=== PATIENT | female | born 1950 | race Caucasian/White ===

== ENCOUNTER → 2018-04-02 08:10 | Outpatient (CLI) | payer MEDICARE, OTHER, SELFPAY ==
--- NOTE | 2018-04-02 08:12 | DI.MRI.S_ITS ---
PROCEDURE: MR HEAD/BRAIN WO CON INDICATIONS: dec memory TECHNIQUE: Non-contrast axial T1 spin echo, axial T2 fast spin echo, sagittal and axial FLAIR, coronal T2 fast spin echo, axial gradient echo, axial diffusion and ADC through the brain. COMPARISON: [facility], CT, HEAD WITHOUT CONTRAST, 02/12/2017, 11:51. FINDINGS: Image quality: Excellent. CSF spaces: Ventricles appear symmetric in size and shape. Basal cisterns are patent. No extra-axial fluid collections. Brain: No intracranial bleeds or mass effects. There is mild cerebral volume loss for age. There are mild periventricular and deep white matter chronic small vessel ischemic changes. Brainstem appears normal. Diffusion-weighted images show no acute ischemic insults. No chronic ischemic insults. Normal intravascular flow voids are present. Skull and face: Calvarial bone marrow is normal in signal. Orbits are normal. Sinuses: There is mucosal thickening in frontal, ethmoid, sphenoid and maxillary sinuses bilaterally. Mastoids are clear. IMPRESSION: 1. No acute intracranial abnormalities. 2. Mild cerebral volume loss and chronic microvascular ischemic changes. 3. Bilateral sinusitis. Dictated by: Ana Laura Andino M.D. on 04/02/2018 at 9:10 Approved by: Ana Laura Andino M.D. on 04/02/2018 at 9:12
[2018-04-02 10:17] LABS: Add Manual Diff / Slide Review NO; Basophils Percent Auto 0.7 % (0-2); Eosinophils Percent Auto 3.3 % (2-4); Hematocrit 34.2 % (36-46); Hemoglobin 11.5 g/dL (12.0-16.0); Lymphocytes Percent Auto 29.4 % (25-40); Mean Corpuscular HGB Conc 33.5 % (30-36); Mean Corpuscular Hemoglobin 33.1 PG (26-34); Mean Corpuscular Volume 98.8 fL (80-100); Monocytes Percent Auto 6.7 % (3-14); Neutrophils Absolute Auto 5200 /uL (3000-5900); Neutrophils Percent Auto 59.9 % (50-75); Platelet Count 299 X10^3/uL (150-400); Red Blood Cell Count 3.46 X10^6/uL (4.0-5.2); Red Cell Distribution Width 13.3 % (11.6-14.8); White Blood Cell Count 8.7 X10^3/uL (4.5-11.0)
[2018-04-02 10:39] LABS: Erythrocyte Sedimentation Rate 67 MM/HR (0-20)
[2018-04-02 10:52] LABS: Alanine Aminotransferase 15 IU/L (9-52); Albumin 3.9 g/dL (3.5-5.0); Albumin Globulin Ratio 1.1 (1.0-2.8); Alkaline Phosphatase 63 U/L (38-126); Aspartate Aminotransferase 17 IU/L (14-36); BUN Creatinine Ratio 27.1 (6-22); Bilirubin Total 0.3 mg/dL (0.2-1.3); Blood Urea Nitrogen 19 mg/dL (7-17); C-Reactive Protein Quant 0.6 mg/dL (<1.0); Calcium 9.3 mg/dL (8.4-10.2); Carbon Dioxide 28 mmol/L (22-32); Chloride 103 mmol/L (98-107); Cholesterol 187 mg/dL (140-199); Estimated Glomerular Filt Rate > 60.0 mL/min (>60); Globulin 3.4 g/dL (1.7-4.1); Glucose 101 mg/dL (80-110); HDL Cholesterol 86 mg/dL (40-60); HEMOLYSIS < 15 (0-50); LDL Cholesterol Calculated 51 mg/dL (<100); Potassium 3.8 mmol/L (3.4-5.1); Sodium 140 mmol/L (137-145); Total Protein 7.3 g/dL (6.3-8.2); Triglycerides 249 mg/dL (35-150)
[2018-04-02 11:14] LABS: Thyroid Stimulating Hormone 1.04 uIU/mL (0.47-4.68)
== END ==
PROVIDERS: Family Provider Family Medicine; PCP Family Medicine; Visit Provider Family Medicine
DX: J32.4 Chronic pansinusitis (principal)
CPT/HCPCS: 36415; 70551; 80053; 80061; 84443; 85025; 85651; 86140

== ENCOUNTER → 2019-04-02 15:09 | Outpatient (CLI) | payer MEDICARE, OTHER, SELFPAY ==
--- NOTE | 2019-04-02 15:12 | DI.RAD.S_ITS ---
PROCEDURE: XR CHEST 2V INDICATIONS: Cough TECHNIQUE: 2 views of the chest were acquired. COMPARISON: [facility], , CHEST 2 VIEW, 02/14/2017, 13:21. FINDINGS: Surgical changes and devices: None. Lungs and pleura: Lungs are clear. No pleural effusions or pneumothorax. Mediastinum: Mediastinal contours are normal. Heart size is normal. Bones and chest wall: No suspicious bony abnormalities. Soft tissues appear unremarkable. IMPRESSION: No acute disease Dictated by: Justyn Salguero M.D. on 04/02/2019 at 16:10 Approved by: Justyn Salguero M.D. on 04/02/2019 at 16:11
--- NOTE | 2019-04-02 15:12 | DI.RAD.S_ITS ---
PROCEDURE: XR LUMBAR SPINE 2-3V INDICATIONS: Hip pain TECHNIQUE: 3 views of the lumbar spine were acquired. COMPARISON: [facility], , L-SPINE 2-3 VIEWS, 06/03/2015, 15:17. FINDINGS: Bones: No fracture or focal osseous destruction. Mild levocurvature. Multilevel degenerative endplate sclerosis and spurring. Diffuse facet arthropathy. The disc spaces appear grossly preserved. Soft tissues: Overlying bowel gas pattern is normal. No suspicious soft tissue calcifications. IMPRESSION: Mild levocurvature and diffuse lumbar spondylosis however no interval progression since 06/03/15 Dictated by: Justyn Salguero M.D. on 04/02/2019 at 16:11 Approved by: Justyn Salguero M.D. on 04/02/2019 at 16:13
--- NOTE | 2019-04-02 15:12 | DI.RAD.S_ITS ---
PROCEDURE: XR HIP W PEL IF DONE LT 2V INDICATIONS: left hip pain TECHNIQUE: AP pelvis with lateral view(s) of the left hip(s). COMPARISON: [facility], , HIP 2V LEFT, 04/12/2012, 15:43. FINDINGS: Bones: No fractures or dislocations. Pelvic ring appears intact. No suspicious bony lesions. The joint spaces appear grossly preserved. Bilateral hip subchondral sclerosis and mild spurring. Soft tissues: The visualized bowel gas pattern is normal. No suspicious soft tissue calcifications. IMPRESSION: Minimal bilateral hip degeneration. Dictated by: Justyn Salguero M.D. on 04/02/2019 at 17:25 Approved by: Justyn Salguero M.D. on 04/02/2019 at 17:26
== END ==
PROVIDERS: Family Provider Family Medicine; PCP Family Medicine; Visit Provider Family Medicine
DX: R05 Cough (principal); M47.816 Spondylosis without myelopathy or radiculopathy, lumbar region; M25.552 Pain in left hip
CPT/HCPCS: 71046; 72100; 73502

== ENCOUNTER → 2019-04-14 10:46 | Outpatient (CLI) | payer MEDICARE, OTHER, SELFPAY ==
[2019-04-14 11:36] LABS: Add Manual Diff / Slide Review NO; Basophils Absolute Auto 0 /uL (0-100); Basophils Percent Auto 0.8 % (0-2); Eosinophils Absolute Auto 300 /uL (0-450); Eosinophils Percent Auto 4.8 % (2-4); Hematocrit 35.3 % (36-46); Hemoglobin 12.1 g/dL (12.0-16.0); Lymphocytes Absolute Auto 2100 /uL (1100-4500); Lymphocytes Percent Auto 36.7 % (25-40); Mean Corpuscular HGB Conc 34.2 % (30-36); Mean Corpuscular Volume 99.6 fL (80-100); Monocytes Absolute Auto 400 /uL (0-900); Monocytes Percent Auto 6.7 % (3-14); Neutrophils Absolute Auto 3000 /uL (1500-7000); Platelet Count 345 X10^3/uL (150-400); Red Blood Cell Count 3.55 X10^6/uL (4.0-5.2); White Blood Cell Count 5.8 X10^3/uL (4.5-11.0)
[2019-04-14 11:53] LABS: Alanine Aminotransferase 11 IU/L (9-52); Albumin 4.1 g/dL (3.5-5.0); Albumin Globulin Ratio 1.1 (1.0-2.8); Alkaline Phosphatase 67 U/L (38-126); Aspartate Aminotransferase 20 IU/L (14-36); BUN Creatinine Ratio 28.6 (6-22); Bilirubin Total 0.2 mg/dL (0.2-1.3); Blood Urea Nitrogen 20 mg/dL (7-17); Calcium 9.3 mg/dL (8.4-10.2); Carbon Dioxide 29 mmol/L (22-32); Chloride 103 mmol/L (98-107); Cholesterol 214 mg/dL (140-199); Estimated Glomerular Filt Rate > 60.0 mL/min (>60); Globulin 3.6 g/dL (1.7-4.1); Glucose 110 mg/dL (80-110); HDL Cholesterol 76 mg/dL (40-60); LDL Cholesterol Calculated 82 mg/dL (<100); Potassium 4.7 mmol/L (3.4-5.1); Sodium 139 mmol/L (137-145); Total Protein 7.7 g/dL (6.3-8.2); Triglycerides 281 mg/dL (35-150)
[2019-04-14 12:09] LABS: Vitamin D 25 Hydroxy (D3) 23.6 ng/mL (30.0-100.0)
[2019-04-14 12:12] LABS: Erythrocyte Sedimentation Rate 68 MM/HR (0-20)
[2019-04-14 12:22] LABS: Thyroid Stimulating Hormone 1.37 uIU/mL (0.47-4.68)
[2019-04-14 12:41] LABS: Vitamin B12 Reflex MMA if <400 234 pg/mL (239-931)
[2019-04-14 12:55] LABS: HEMOLYSIS < 15 (0-50)
[2019-04-14 15:13] LABS: Vitamin B12 224 pg/mL (239-931)
[2019-04-17 13:50] LABS: Homocysteine 6.5 umol/L (< 10.4)
[2019-04-17 17:01] LABS: Methylmalonic Acid 184 nmol/L (87-318)
== END ==
PROVIDERS: PCP Family Medicine; Visit Provider Family Medicine
DX: R41.3 Other amnesia (principal)
CPT/HCPCS: 36415; 80053; 80061; 82306; 82607; 83090; 83921; 84443; 85025; 85651; 86140

== ENCOUNTER → 2019-08-08 13:46 | Outpatient (CLI) | payer MEDICARE, OTHER, SELFPAY ==
[2019-08-08 15:23] LABS: Vitamin D 25 Hydroxy (D3) 33.6 ng/mL (30.0-100.0)
[2019-08-08 15:54] LABS: Vitamin B12 259 pg/mL (239-931)
== END ==
PROVIDERS: PCP Family Medicine; Visit Provider Family Medicine
DX: F32.9 Major depressive disorder, single episode, unspecified (principal)
CPT/HCPCS: 36415; 82306; 82607

== ENCOUNTER 2020-08-13 12:45 | Emergency (ER) | payer MEDICARE, OTHER, SELFPAY ==
[2020-08-13 12:49] VITALS: BP 179/79; PULSE 80; RESP 15; TEMP 35.9; O2SAT 99
--- NOTE | 2020-08-13 12:57 | DI.CT.S_ITS ---
PROCEDURE: CT HEAD/BRAIN WO CON INDICATIONS: dizziness TECHNIQUE: Noncontrast 4.5 mm thick angled axial sections acquired from the foramen magnum to the vertex, with coronal and sagittal reformats. For radiation dose reduction, the following was used: automated exposure control, adjustment of mA and/or kV according to patient size. COMPARISON: [facility], MR, MR HEAD/BRAIN WO CON, 04/02/2018, 8:27. [facility], CT, HEAD WITHOUT CONTRAST, 02/12/2017, 11:51. FINDINGS: Image quality: Excellent. CSF spaces: Basal cisterns are patent. No extra-axial fluid collections. The ventricles are symmetric in size and shape. Brain: No intracranial bleeds or masses. There is cerebral volume loss for age, with resultant ventricular and sulcal prominence. There are periventricular and deep white matter chronic small vessel ischemic changes. There is intracranial internal carotid artery atherosclerosis. Skull and face: Calvarium and visualized facial bones appear intact, without suspicious lesions. Sinuses: Bilateral maxillary sinus mucosal thickening. The mastoids are clear. IMPRESSION: 1. No acute intracranial abnormalities. 2. Bilateral chronic maxillary sinusitis. Dictated by: Ana Laura Andino M.D. on 08/13/2020 at 13:23 Approved by: Ana Laura Andino M.D. on 08/13/2020 at 13:25
[2020-08-13 13:23] LABS: INR 0.8 (0.9-1.3); Prothrombin Time 9.8 SECONDS (10.1-12.7)
[2020-08-13 13:26] LABS: PTT Partial Thromboplastin Tim 31 SECONDS (26.4-36.2)
[2020-08-13 13:27] LABS: Add Manual Diff / Slide Review NO; Basophils Absolute Auto 100 /uL (0-100); Basophils Percent Auto 1.3 % (0-2); Eosinophils Absolute Auto 500 /uL (0-450); Eosinophils Percent Auto 6.5 % (2-4); Hemoglobin 11.7 g/dL (12.0-16.0); Lymphocytes Absolute Auto 2800 /uL (1100-4500); Lymphocytes Percent Auto 32.9 % (25-40); Mean Corpuscular HGB Conc 33.6 % (30-36); Mean Corpuscular Hemoglobin 32.9 PG (26-34); Mean Corpuscular Volume 98.1 fL (80-100); Monocytes Absolute Auto 600 /uL (0-900); Monocytes Percent Auto 7.7 % (3-14); Neutrophils Absolute Auto 4400 /uL (1500-7000); Neutrophils Percent Auto 51.6 % (50-75); Platelet Count 323 X10^3/uL (150-400); Red Blood Cell Count 3.56 X10^6/uL (4.0-5.2); Red Cell Distribution Width 13.3 % (11.6-14.8); White Blood Cell Count 8.5 X10^3/uL (4.5-11.0)
[2020-08-13 13:30] LABS: Alanine Aminotransferase 14 IU/L (<35); Albumin 3.9 g/dL (3.5-5.0); Albumin Globulin Ratio 1.1 (1.0-2.8); Alkaline Phosphatase 92 U/L (38-126); Aspartate Aminotransferase 21 IU/L (14-36); BUN Creatinine Ratio 28.7 (6-22); Bilirubin Total 0.4 mg/dL (0.2-1.3); Blood Urea Nitrogen 25 mg/dL (7-17); Calcium 8.9 mg/dL (8.4-10.2); Carbon Dioxide 30 mmol/L (22-32); Chloride 105 mmol/L (98-107); Estimated Glomerular Filt Rate > 60.0 mL/min (>60); Globulin 3.5 g/dL (1.7-4.1); Glucose 125 mg/dL (80-110); HEMOLYSIS < 15 (0-50); Potassium 4.7 mmol/L (3.4-5.1); Sodium 138 mmol/L (137-145); Total Protein 7.4 g/dL (6.3-8.2)
[2020-08-13 13:36] LABS: RBC Urine None Seen (0-5/HPF)
[2020-08-13 13:48] LABS: Bacteria Urine Moderate (10-30); Squamous Epithelial Cell Urine 10-30 /HPF (0-5/HPF); WBC Urine 1-5/HPF (0-5/HPF)
[2020-08-13 15:53] VITALS: BP 146/65; PULSE 64; RESP 18; O2SAT 95
--- NOTE | 2020-08-13 16:14 | ED_ITS ---
HPI - Neuro Symptoms/Deficit General Chief Complaint: Neuro Symptoms/Deficit Stated Complaint: tingling in legs and arms Time Seen by Provider: 08/13/20 16:05 Source: patient and family Mode of arrival: Ambulatory Limitations: no limitations History of Present Illness HPI Narrative: This is a 70-year-old female who comes to emergency department with complaint of feeling tingling in her arms and legs while she was lying in bed. Patient states that she did feel like she could move her arms or legs. She then got up and went to the bathroom and when she returned felt like her legs sort of know she states it felt like they gave out and she fell onto the bed. She states this was short event and then resolved. She did have a little bit of a headache this morning but it has resolved. She took ibuprofen for the headache. She denies any pain, no neck or back pain no difficulty with speech, no vision changes. She states she did hit her head the other day an open covered when she was standing up and had a large lump which has resolved. She denies any syncope or loss of consciousness. No chest pain, no shortness of breath, no nausea, no vomiting no GI or urinary symptoms including diarrhea constipation. No loss of bowel or bladder control. No changes in gait or movement. Patient had a similar episode about a month ago. 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 Her states she has memory issues which seem to be more short term and t radhay do not describe them as long-term memory issues. He states they seem like they have been more progressively but have not been extending into the long-term type memory loss. They have seen Dr. Heath on the , he has ordered an MRI and feels patient would benefit from follow-up with Neurology. Patient has had tonsillectomy but no other prior surgeries. No recent changes in medication dosages or medications added, patient did stop her oral estrogen several weeks ago. No tobacco, alcohol or illicit. No family history of neurologic issues or similar symptoms. Patient states she did have somewhat similar symptoms when she was younger and would pass out frequently. On Anticoagulants: No Related Data Previous Rx's Medication Instructions Recorded cholecalciferol (vitamin D3) 1,250 50,000 unit PO QWEEK #7 cap 04/16/19 mcg (50,000 unit) capsule atorvastatin 10 mg tablet 10 mg PO HS #90 tab 08/11/20 citalopram 40 mg tablet 60 mg PO QDAY #135 tab 08/11/20 cyclobenzaprine 10 mg tablet 5 mg PO HS #20 tab 08/11/20 omeprazole 20 mg capsule,delayed 20 mg PO QDAY #90 cap 08/11/20 release zolpidem 10 mg tablet 10 mg PO BEDTIME #30 tab 08/11/20 dextroamphetamine-amphetamine 20 See Rx Instructions PO BID #75 tab 08/12/20 mg tablet hydrocodone 5 mg-acetaminophen 325 1 tab PO BID PRN #60 tab 08/12/20 mg tablet Allergies Allergy/AdvReac Type Severity Reaction Status Date / Time amoxicillin [AMOXICILLIN] Allergy Severe RASH/HIVES Verified 08/11/20 14:05 codeine [CODEINE] Allergy Mild GASTROINTESTINAL Verified 08/11/20 14:05 ISSUES Review of Systems Review of Systems ROS Unobtainable: All systems reviewed & are unremarkable except as noted in HPI and below Patient History Medical History BPPV (benign paroxysmal positional vertigo) (Acute) Dehydration (Acute) Social History Smoking Status: Former smoker Smoking Status: Former smoker alcohol intake frequency: 0-2 drinks per day Substance Use Type: does not use Exam Narrative Exam Narrative: GEN: well nourished, well appearing female, alert and oriented x 3, patient appears to be in mild distress. HEENT: Atraumatic, pupils are equal round reactive to light, extraocular movements are intact, nares are clear, TMs are clear with no fluid, there is no conjunctival pallor. Throat is clear without any exudates, erythema, tonsillar enlargement or uvular deviation, no facial droop, no dysarthria. HEART: Regular rate and rhythm without murmur, clicks, rubs. No carotid bruits, pulses are equal in upper and lower extremities LUNGS:Lungs clear to auscultation, no wheezes, rales, crackles, chest moves symmetrically ABD:bowel sounds normal, soft, non-tender, no guarding, rebound, rigidity, no masses noted, no hepatosplenomegaly :No CVA tenderness. MSCL: Non-tender, no muscle atrophy, muscles strength 5/5 upper and lower extremities, full range of motion, normal gait NEURO:CN 2-12 intact, sensation normal, reflexes 2/4 upper and lower extremities. finger nose finger test normal, heel leonard test normal. Initial Vital Signs Initial Vital Signs: Vital Signs Temperature 96.6 F L 08/13/20 12:49 Pulse Rate 80 08/13/20 12:49 Respiratory Rate 15 08/13/20 12:49 Blood Pressure 179/79 H 08/13/20 12:49 Pulse Oximetry 99 08/13/20 12:49 Scores GCS Emily coma scale eye opening: Spontaneous [place] coma scale verbal response: Orientated [place] coma scale motor response: Obey commands [place] coma scale total score: 15 NIH Stroke Scale Level of Conciousness: Alert, keenly responsive Ask month/age: Answers both questions correctly. Open/close eyes, close hand: Performs both tasks correctly Best gaze horizontal: Normal Visual epps: No visual loss Facial palsy: Normal symetrical movement Left arm drift: No drift for full 10 sec Right arm drift: No drift for full 10 sec Left leg drift: No drift for full 5 sec Right leg drift: No drift for full 5 sec Limb ataxia: Absent Sensory on face/arms/legs: Normal, no sensory loss Best language: No aphasia, normal Dysarthria: Normal Extinction or inattention: No abnormality Total NIH Stroke scale score: 0 Course Orders Ordered: ED Orders 08/13/20 12:57 CT head/brain wo con Stat 08/13/20 13:07 Complete Blood Count AUTO DIFF Stat Comprehensive Metabolic Panel Stat Ethanol (ETOH) Stat Partial Thromboplastin Time Stat Prothrombin Time INR Stat 08/13/20 13:29 Urine Microscopic Stat 08/13/20 15:07 EKG-12 Lead Stat 08/13/20 16:51 Urine Drug Screen, Rapid Stat Vital Signs Vital signs: Vital Signs - 8 hr 08/13/20 12:49 08/13/20 15:53 08/13/20 17:27 Temperature 96.6 F L Pulse Rate 80 64 72 Respiratory Rate 15 18 18 Blood Pressure 179/79 H 146/65 H 169/74 H Pulse Oximetry 99 95 98 MDM - Neuro Symptoms/Deficit Lab Data Attestation: I reviewed the patient's lab results. Lab results narrative: Patient's labs patient has anemia although appears to be baseline. Eosinophils are elevated. INR is low, PTT is normal. No electrolyte abnormalities noted, BUN is 25 with a glucose of 125 and normal renal function. LFTs are normal range. etoh is negative. Urine shows white blood cells and bacteria but also epithelial cells and is likely ?dirty urine?. Result diagrams: 08/13/20 13:07 08/13/20 13:07 Labs: Lab Results 08/13/20 08/13/20 08/13/20 Range/Units 13:07 13:07 13:07 WBC 8.5 (4.5-11.0) X10^3/uL RBC 3.56 L (4.0-5.2) X10^6/uL Hgb 11.7 L (12.0-16.0) g/dL Hct 35.0 L (36-46) % MCV 98.1 (80-100) fL MCH 32.9 (26-34) PG MCHC 33.6 (30-36) % RDW 13.3 (11.6-14.8) % Plt Count 323 (150-400) X10^3/uL Neut % (Auto) 51.6 (50-75) % Lymph % (Auto) 32.9 (25-40) % Finney % (Auto) 7.7 (3-14) % Eos % (Auto) 6.5 H (2-4) % Baso % (Auto) 1.3 (0-2) % Neut # (Auto) 4400 (6759-3483) /uL Lymph # (Auto) 2800 (0452-5522) /uL Finney # (Auto) 600 (0-900) /uL Eos # (Auto) 500 H (0-450) /uL Baso # (Auto) 100 (0-100) /uL PT 9.8 L (10.1-12.7) SECONDS INR 0.8 L (0.9-1.3) APTT 31 (26.4-36.2) SECONDS Sodium 138 (137-145) mmol/L Potassium 4.7 (3.4-5.1) mmol/L Chloride 105 (98-107) mmol/L Carbon Dioxide 30 (22-32) mmol/L BUN 25 H (7-17) mg/dL Creatinine 0.87 (0.52-1.04) mg/dL Estimated GFR > 60.0 (>60) mL/min BUN/Creatinine Ratio 28.7 H (6-22) Glucose 125 H (80-110) mg/dL Calcium 8.9 (8.4-10.2) mg/dL Total Bilirubin 0.4 (0.2-1.3) mg/dL AST 21 (14-36) IU/L ALT 14 (<35) IU/L Alkaline Phosphatase 92 (38-126) U/L Total Protein 7.4 (6.3-8.2) g/dL Albumin 3.9 (3.5-5.0) g/dL Globulin 3.5 (1.7-4.1) g/dL Albumin/Globulin Ratio 1.1 (1.0-2.8) Urine RBC (0-5/HPF) Urine WBC (0-5/HPF) Ur Squamous Epith Cells (0-5/HPF) Urine Bacteria (None) Ur Culture Indicated? Micro UA Comment Ethyl Alcohol ( - 10) mg/dL 08/13/20 08/13/20 Range/Units 13:07 13:29 WBC (4.5-11.0) X10^3/uL RBC (4.0-5.2) X10^6/uL Hgb (12.0-16.0) g/dL Hct (36-46) % MCV (80-100) fL MCH (26-34) PG MCHC (30-36) % RDW (11.6-14.8) % Plt Count (150-400) X10^3/uL Neut % (Auto) (50-75) % Lymph % (Auto) (25-40) % Finney % (Auto) (3-14) % Eos % (Auto) (2-4) % Baso % (Auto) (0-2) % Neut # (Auto) (2065-2720) /uL Lymph # (Auto) (2190-2537) /uL Finney # (Auto) (0-900) /uL Eos # (Auto) (0-450) /uL Baso # (Auto) (0-100) /uL PT (10.1-12.7) SECONDS INR (0.9-1.3) APTT (26.4-36.2) SECONDS Sodium (137-145) mmol/L Potassium (3.4-5.1) mmol/L Chloride (98-107) mmol/L Carbon Dioxide (22-32) mmol/L BUN (7-17) mg/dL Creatinine (0.52-1.04) mg/dL Estimated GFR (>60) mL/min BUN/Creatinine Ratio (6-22) Glucose (80-110) mg/dL Calcium (8.4-10.2) mg/dL Total Bilirubin (0.2-1.3) mg/dL AST (14-36) IU/L ALT (<35) IU/L Alkaline Phosphatase (38-126) U/L Total Protein (6.3-8.2) g/dL Albumin (3.5-5.0) g/dL Globulin (1.7-4.1) g/dL Albumin/Globulin Ratio (1.0-2.8) Urine RBC None seen (0-5/HPF) Urine WBC 1-5/hpf (0-5/HPF) Ur Squamous Epith Cells 10-30 /hpf H (0-5/HPF) Urine Bacteria Moderate (10-30) H (None) Ur Culture Indicated? Culture not indicate Micro UA Comment Ethyl Alcohol < 10 ( - 10) mg/dL Urine Dip Bedside Urine Glucose Negative Bedside Urine Bilirubin - Negative Bedside Urine Ketone - Negative Urine Specific Dolliver 1.025 Bedside Urine Occult Blood - Negative Bedside Urine pH 6.0 Bedside Urine Protein + 30 Bedside Urine Urobilinogen - Negative Bedside Urine Nitrite - Negative Bedside Urine Leukocytes - Negative Esterase Imaging Data CT scan - head: Radiologist's Impression: [address] [address] [address] Scan Report Signed Patient: Yasmine Goncalves R#: [id number] : 1950Acct:[id number] Age/Sex: 70 / FDate of Service: 08/13/20 Loc: ED Accession Number: [id number] Procedure: CT head/brain wo con Ordering Provider: Caridad Gomez D.O. PROCEDURE: CT HEAD/BRAIN WO CON INDICATIONS: dizziness TECHNIQUE: Noncontrast 4.5 mm thick angled axial sections acquired from the foramen magnum to the vertex, with coronal and sagittal reformats. For radiation dose reduction, the following was used: automated exposure control, adjustment of mA and/or kV according to patient size. COMPARISON: [facility], MR, MR HEAD/BRAIN WO CON, 04/02/2018, 8:27. [facility], CT, HEAD WITHOUT CONTRAST, 02/12/2017, 11:51. FINDINGS: Image quality: Excellent. CSF spaces: Basal cisterns are patent. No extra-axial fluid collections. The ventricles are symmetric in size and shape. Brain: No intracranial bleeds or masses. There is cerebral volume loss for age, with resultant ventricular and sulcal prominence. There are periventricular and deep white matter chronic small vessel ischemic changes. There is intracranial internal carotid artery atherosclerosis. Skull and face: Calvarium and visualized facial bones appear intact, without suspicious lesions. Sinuses: Bilateral maxillary sinus mucosal thickening. The mastoids are clear. IMPRESSION: 1. No acute intracranial abnormalities. 2. Bilateral chronic maxillary sinusitis. Dictated by: Ana Laura Andino M.D. on 08/13/2020 at 13:23 Approved by: Ana Laura Andino M.D. on 08/13/2020 at 13:25 ECG Data Attestation: I personally reviewed and interpreted this ECG as follows: Prior ECG tracings: available for review Interpretation: Sinus rhythm rate of 60, HI 168 QRS 86 and QTC of 462. Q-wave in lead 3. No elevation appreciated. Patient has prior EKG from 02/12/2017 which appears similar MDM Narrative Medical decision making narrative: Patient describes paresthesias and difficulty with moving her extremities but both upper and lower initially and then later both lower extremities. Patient did not have loss of consciousness did feel like she had any alteration in mental status. She does not have any clear pattern that fits a typical neurologic insult such as seizure, ischemic or hemorrhagic cause, patient does have a remote TBI. Does not appear to have a cardiac origin or pulmonary. She does take several medications that could affect her memory she takes Adderall, [place] as well as an antidepressant in combination. Labs and imaging do not show current cause, urine appears dirty and patient prefers to follow with pcp to give another sample, but we did discuss that occasionally UTIs can give atypical symptoms. Patient has also had some decrease in memory which by her and her 's description is more short-term memory and her long-term memory has not been is affected but has been seeming to be more progressive over time. Patient has seen her primary care physician recently and MRI of the head was ordered as well as referral to neurology with which both seem appropriate for this patient. Discharge Plan Departure Patient Disposition: Home Clinical Impression: Paresthesia of upper and lower extremities of both sides Discharge Date/Time: 08/13/20 17:30 Instructions: DI for Numbness/Tingling Activity Restrictions/Additional Instructions: Follow up with Dr. Heath as scheduled, would recommend continuing to follow up to get your MRI Dr. Heath has ordered as well as the follow up with neurology. You may continue home medications as prescribed. Return to the ER for fevers, severe headaches, sudden changes in mental status or altered mental status, vision changes, difficulty with speech, new numbness, weakness or tingling, inability use her extremities, persistent vomiting severe neck or back, or other new or concerning symptoms. Prescriptions: No Action hydrocodone-acetaminophen 5-325 mg tablet 1 tab PO BID PRN (Reason: pain) Qty: 60 RF: 0 dextroamphetamine-amphetamine [Adderall] 20 mg tablet See Rx Instructions PO BID Qty: 75 RF: 0 atorvastatin [Lipitor] 10 mg tablet 10 mg PO HS Qty: 90 RF: 3 citalopram [Celexa] 40 mg tablet 60 mg PO QDAY Qty: 135 RF: 3 cyclobenzaprine 10 mg tablet 5 mg PO HS Qty: 20 RF: 3 omeprazole 20 mg capsule,delayed release(DR/EC) 20 mg PO QDAY Qty: 90 RF: 3 zolpidem [Ambien] 10 mg tablet 10 mg PO BEDTIME Qty: 30 RF: 2 cholecalciferol (vitamin D3) 50,000 unit capsule 50,000 unit PO QWEEK Qty: 7 RF: 3 Referrals: Oleg Heath MD [Primary Care Provider] -
[2020-08-13 16:53] LABS: Ethanol (ETOH) < 10 mg/dL
[2020-08-13 17:27] VITALS: BP 169/74; PULSE 72; RESP 18; O2SAT 98
== END 2020-08-13 17:30 | disposition home or self-care (01) ==
PROVIDERS: Emergency Provider Emergency Medicine; PCP Family Medicine
DX: R20.2 Paresthesia of skin (principal); R42 Dizziness and giddiness; R07.9 Chest pain, unspecified
CPT/HCPCS: 36415; 70450; 80053; 80320; 81003; 81015; 85025; 85610; 85730; 93005; 99284

== ENCOUNTER → 2020-08-19 13:55 | Outpatient (CLI) | payer MEDICARE, OTHER, SELFPAY ==
[2020-08-19 15:27] LABS: Add Manual Diff / Slide Review NO; Basophils Absolute Auto 100 /uL (0-100); Basophils Percent Auto 0.9 % (0-2); Eosinophils Absolute Auto 300 /uL (0-450); Eosinophils Percent Auto 3.8 % (2-4); Hematocrit 37.8 % (36-46); Hemoglobin 12.5 g/dL (12.0-16.0); Lymphocytes Absolute Auto 2000 /uL (1100-4500); Lymphocytes Percent Auto 24.2 % (25-40); Mean Corpuscular HGB Conc 33.2 % (30-36); Mean Corpuscular Hemoglobin 32.1 PG (26-34); Mean Corpuscular Volume 96.6 fL (80-100); Monocytes Absolute Auto 500 /uL (0-900); Monocytes Percent Auto 5.9 % (3-14); Neutrophils Absolute Auto 5400 /uL (1500-7000); Neutrophils Percent Auto 65.2 % (50-75); Platelet Count 369 X10^3/uL (150-400); Red Blood Cell Count 3.91 X10^6/uL (4.0-5.2); Red Cell Distribution Width 13.3 % (11.6-14.8); White Blood Cell Count 8.3 X10^3/uL (4.5-11.0)
[2020-08-19 15:48] LABS: Alanine Aminotransferase 23 IU/L (<35); Albumin 4.3 g/dL (3.5-5.0); Albumin Globulin Ratio 1.3 (1.0-2.8); Alkaline Phosphatase 75 U/L (38-126); Aspartate Aminotransferase 31 IU/L (14-36); Bilirubin Total 0.4 mg/dL (0.2-1.3); Blood Urea Nitrogen 20 mg/dL (7-17); C-Reactive Protein Quant 0.5 mg/dL (<1.0); Calcium 9.9 mg/dL (8.4-10.2); Carbon Dioxide 29 mmol/L (22-32); Chloride 103 mmol/L (98-107); Cholesterol 254 mg/dL (140-199); Estimated Glomerular Filt Rate > 60.0 mL/min (>60); Globulin 3.4 g/dL (1.7-4.1); Glucose 121 mg/dL (80-110); HDL Cholesterol 80 mg/dL (40-60); HEMOLYSIS < 15 (0-50); LDL Cholesterol Calculated 131 mg/dL (<100); Potassium 4.1 mmol/L (3.4-5.1); Sodium 138 mmol/L (137-145); Total Protein 7.7 g/dL (6.3-8.2); Triglycerides 214 mg/dL (35-150)
[2020-08-19 16:39] LABS: Erythrocyte Sedimentation Rate 64 MM/HR (0-20)
== END ==
PROVIDERS: PCP Family Medicine; Referring Provider Family Medicine; Visit Provider Family Medicine
DX: S06.9X9A Unspecified intracranial injury with loss of consciousness of unspecified duration, initial encounter (principal); E78.2 Mixed hyperlipidemia
CPT/HCPCS: 36415; 80053; 80061; 85025; 85651; 86140

== ENCOUNTER → 2020-08-27 09:28 | Outpatient (CLI) | payer MEDICARE, OTHER, SELFPAY ==
--- NOTE | 2020-08-27 09:32 | DI.MRI.S_ITS ---
PROCEDURE: MR HEAD/BRAIN WO CON INDICATIONS: increased memory impairment TECHNIQUE: Non-contrast axial T1 spin echo, axial T2 fast spin echo, sagittal and axial FLAIR, coronal T2 fast spin echo, axial gradient echo, axial diffusion and ADC through the brain. COMPARISON: [facility], , MR HEAD/BRAIN WO CON, 04/02/2018, 8:27. FINDINGS: Image quality: Excellent. CSF spaces: Ventricles appear symmetric in size and shape. Basal cisterns are patent. No extra-axial fluid collections. Brain: No intracranial bleeds or mass effects. There is cerebral volume loss for age. There are periventricular and deep white matter chronic small vessel ischemic changes. Brainstem appears normal. Diffusion-weighted images show no acute ischemic insults. No chronic ischemic insults. Normal intravascular flow voids are present. Skull and face: Calvarial bone marrow is normal in signal. Orbits are normal. Sinuses: Mastoids are clear. There is severe left posterior ethmoid sinus mucosal thickening superimposed on mild bilateral ethmoid sinus mucosal thickening. Mild right greater than left frontal sinus mucosal thickening is present. Moderate right and mild left maxillary sinus mucosal thickening is present. IMPRESSION: 1. Volume loss and small vessel ischemic disease. 2. Sinus disease. 3. No acute process. No recent infarct. Dictated by: Dariela Mares M.D. on 08/27/2020 at 9:20 Approved by: Dariela Mares M.D. on 08/27/2020 at 9:22
== END ==
PROVIDERS: PCP Family Medicine; Referring Provider Family Medicine; Visit Provider Family Medicine
DX: R41.3 Other amnesia (principal); R20.2 Paresthesia of skin
CPT/HCPCS: 70551

== ENCOUNTER → 2020-10-11 11:25 | Outpatient (CLI) | payer MEDICARE, OTHER, SELFPAY ==
[2020-10-11 13:01] LABS: COVID19 -Nasal RAPID Negative (Negative)
== END ==
PROVIDERS: PCP Family Medicine; Visit Provider Physician Assistant
DX: Z01.812 Encounter for preprocedural laboratory examination (principal); Z20.822 Contact with and (suspected) exposure to COVID-19
CPT/HCPCS: 87635; C9803

== ENCOUNTER → 2020-10-25 09:14 | Outpatient (CLI) | payer MEDICARE, OTHER, SELFPAY ==
[2020-10-25 09:52] LABS: COVID19 -Nasal RAPID Negative (Negative)
== END ==
PROVIDERS: PCP Family Medicine; Visit Provider Physician Assistant
DX: Z20.822 Contact with and (suspected) exposure to COVID-19 (principal)
CPT/HCPCS: 87635; C9803

== ENCOUNTER 2020-10-26 08:50 | Day surgery (SDC) | payer MEDICARE, OTHER, SELFPAY ==
[2020-10-26 10:10] VITALS: BP 132/69; PULSE 63; RESP 19; TEMP 36.4; O2SAT 98; BMI 25.4
[2020-10-26] MEDS: PROPARACAINE 0.5% OPHTH SOL 2 DROPS EYE-OP (10:17)
[2020-10-26] MEDS: CATARACT EYE COMPOUND (10 DROPS/SYRINGE) 3 DROPS EYE-OP (10:21)
--- NOTE | 2020-10-26 11:05 | P.OP_ITS ---
Operative Date/Time/Diagnoses Pre-op diagnosis: Nuclear cataract right eye Procedure & Clinicians Procedure: Cataract Surgery Same procedure as scheduled: Yes Surgeon: Dat Ryan Anesthesia Type: MAC +/- and Sedation Operative Notes Procedure in detail: Patient brought to the operating suite. Tetracaine drops placed in the right eye. marking instrument was used to heidi the vertical and horizontal meridians. Patient was prepped and draped in sterile manner. Wire lid speculum was placed in the eye. Marking instrument was used to heidi the 45 degree meridian. Betadine drops were placed on the eye. This was irrigated. Lidocaine jelly was placed on the eye. A paracentesis port was created with a side-port blade. 0.1 mL 1% preservative free lidocaine was injected into the anterior chamber. The anterior chamber was deepened with viscoelastic. 2.6 mm keratome was used to create a temporal clear corneal incision. Cystotome and U trata forceps were used to create continuous tear capsulorrhexis. Balanced salt solution was used to hydro dissect the nucleus. The phacoemulsification handpiece was inserted and the nucleus was removed using the stop and chop technique. The irrigation aspiration handpiece was inserted and the remaining cortex was removed. Anterior chamber was deepened with viscoelastic. An Garsia [id number] intraocular lens with a power of 22.5 was injected into the capsular bag. Irrigation aspiration handpiece was inserted and the remaining viscoelastic was removed. The lens was rotated to the 45 degree meridian. Incision was hydrated with balanced salt solution and found to be leak free with pressure with Weck- Liz sponges. 0.1 mL Vigamox injected anterior chamber. 0.3 mL Kenalog 10 mg was injected subconjunctivally. Lid speculum was removed. The patient left the operating room in excellent condition. Complications: none Post-operative Condition: stable Disposition: same day surgery
--- NOTE | 2020-10-26 11:05 | PM.PREOP ---
Pre-operative Note Interval Note History & Physical reviewed/Exam performed by Physician: Yes Changes to H&P: No
[2020-10-26] MEDS: CHONDROIDTIN/SOD HYALURONATE 1.05 ML SYRINGE INTRAOCULA (11:27)
[2020-10-26] MEDS: TETRACAINE 0.5% OPHTH DROPS 4 ML 2 DROPS EYE-OP (11:28)
[2020-10-26] MEDS: MOXIFLOXACIN INJ 5 MG/ML VIAL EYE-OP (11:28)
[2020-10-26] MEDS: LIDOCAINE JELLY 2% 5 ML 1 APPLIC TOP (11:28)
[2020-10-26] MEDS: PHENYLEPHRINE/LIDOCAINE VIAL (OR) 0.2 ML EYE-OP (11:28)
[2020-10-26] MEDS: BALANCED SALT IRRIG SOLN NO.2 500 ML, EPINEPHrine 1 MG IRR (11:29)
[2020-10-26] MEDS: TRIAMCINOLONE 50 MG/5 ML VIAL INJ (11:29)
[2020-10-26 11:45] VITALS: BP 135/71; PULSE 73; RESP 16; TEMP 36.4; O2SAT 95
== END 2020-10-26 11:45 | disposition home or self-care (01) ==
PROVIDERS: Referring Provider Ophthalmology; Visit Provider Ophthalmology
PROC: (CPT 66984; principal; 2020-10-26 10:45)
DX: H25.11 Age-related nuclear cataract, right eye (principal)
CPT/HCPCS: 66984; J0171; J2250; J3010; J3301; V2787

== ENCOUNTER → 2020-11-06 13:10 | Outpatient (CLI) | payer MEDICARE, OTHER, SELFPAY ==
[2020-11-06 15:17] LABS: COVID19 -Nasal RAPID Negative (Negative)
== END ==
PROVIDERS: PCP Family Medicine; Visit Provider Physician Assistant
DX: Z20.822 Contact with and (suspected) exposure to COVID-19 (principal)
CPT/HCPCS: 87635; C9803

== ENCOUNTER 2020-11-09 09:15 | Day surgery (SDC) | payer MEDICARE, OTHER, SELFPAY ==
[2020-11-09] MEDS: PROPARACAINE 0.5% OPHTH SOL 2 DROPS EYE-OP (09:45)
[2020-11-09] MEDS: CATARACT EYE COMPOUND (10 DROPS/SYRINGE) 3 DROPS EYE-OP (09:46)
[2020-11-09 09:56] VITALS: BP 137/77; PULSE 66; RESP 16; TEMP 36; O2SAT 99; BMI 24.7
--- NOTE | 2020-11-09 09:58 | P.OP_ITS ---
Operative Date/Time/Diagnoses Pre-op diagnosis: Nuclear Cataract Left eye Post-op diagnosis: same Procedure & Clinicians Same procedure as scheduled: Yes Surgeon: Dat Ryan Anesthesia Type: MAC +/- and Sedation Operative Notes Procedure in detail: Patient brought to the operating suite. Tetracaine drops placed in the left eye. Marking instrument was used to heidi the vertical and horizontal meridians. Patient was prepped and draped in sterile manner. Wire lid speculum was placed in the eye. Marking instrument was used to heidi the 115 degree meridian. Betadine drops were placed on the eye. This was irrigated. Lidocaine jelly was placed on the eye. A paracentesis port was created with a side-port blade. 0.1 mL 1% preservative free lidocaine was injected into the anterior chamber. The anterior chamber was deepened with viscoelastic. 2.6 mm keratome was used to create a temporal clear corneal incision. Cystotome and Utrata forceps were used to create continuous tear capsulorrhexis. Balanced salt solution was used to hydro dissect the nucleus. The phacoemulsification handpiece was inserted and the nucleus was removed using the stop and chop t echnique. The irrigation aspiration handpiece was inserted and the remaining cortex was removed. Anterior chamber was deepened with viscoelastic. An Garsia [id number] intraocular lens with a power of 23.0 was injected into the capsular bag. Irrigation aspiration handpiece was inserted and the remaining viscoelastic was removed. The lens was rotated to the 115 degree meridian. Incision was hydrated with balanced salt solution and found to be leak free with pressure with Weck-Liz sponges. 0.1 mL Vigamox injected anterior chamber. 0.3 mL Kenalog 10 mg was injected subconjunctivally. Lid speculum was removed. The patient left the operating room in excellent condition. Complications: none Post-operative Condition: stable Disposition: same day surgery
--- NOTE | 2020-11-09 09:58 | PM.PREOP ---
Pre-operative Note Interval Note History & Physical reviewed/Exam performed by Physician: Yes Changes to H&P: No
[2020-11-09] MEDS: MOXIFLOXACIN INJ 5 MG/ML VIAL EYE-OP (10:20)
[2020-11-09] MEDS: TRIAMCINOLONE 50 MG/5 ML VIAL INJ (10:20)
[2020-11-09] MEDS: BALANCED SALT IRRIG SOLN NO.2 500 ML, EPINEPHrine 1 MG IRR (10:22)
[2020-11-09] MEDS: PHENYLEPHRINE/LIDOCAINE VIAL (OR) 0.2 ML EYE-OP (10:22)
[2020-11-09] MEDS: TETRACAINE 0.5% OPHTH DROPS 4 ML 2 DROPS EYE-OP (10:23)
[2020-11-09] MEDS: LIDOCAINE JELLY 2% 5 ML 1 APPLIC TOP (10:23)
[2020-11-09] MEDS: CHONDROIDTIN/SOD HYALURONATE 1.05 ML SYRINGE INTRAOCULA (10:23)
[2020-11-09 10:32] VITALS: BP 136/70; PULSE 67; RESP 16; TEMP 35.8; O2SAT 95
--- NOTE | 2020-11-09 10:52 | SUR.PHASEII ---
Pt met discharge criteria: VSS, denied pain or nausea, able to drink fluids without difficulty, L eye C/D/I. Discharge instructions discussed with patient, all questions answered. Transported via W/C to private vehicle.
== END 2020-11-09 10:50 | disposition home or self-care (01) ==
PROVIDERS: PCP Family Medicine; Referring Provider Ophthalmology; Visit Provider Ophthalmology
PROC: (CPT 66984; principal; 2020-11-09 11:45)
DX: H25.12 Age-related nuclear cataract, left eye (principal)
CPT/HCPCS: 66984; J0171; J2250; J2405; J3010; J3301; V2787

== ENCOUNTER → 2021-02-01 15:04 | Outpatient (CLI) | payer MEDICARE, OTHER, SELFPAY ==
--- NOTE | 2021-02-01 15:07 | DI.RAD.S_ITS ---
PROCEDURE: XR HIP W PEL IF DONE LT 2V INDICATIONS: pain TECHNIQUE: AP pelvis with lateral view(s) of the left hip(s). COMPARISON: [facility], [place], XR HIP W PEL IF DONE LT 2V, 04/02/2019, 15:52. [facility], [place], HIP 2V LEFT, 04/12/2012, 15:43. FINDINGS: Bones: No fractures or dislocations. Pelvic ring appears intact. No suspicious bony lesions. Soft tissues: The visualized bowel gas pattern is normal. No suspicious soft tissue calcifications. IMPRESSION: Source of asymmetric left-sided hip pain is not identified. Slight symmetric degenerative hip joint osteoarthritis incidentally noted, excellent appearance for age. Dictated by: Danial Bhandari M.D. on 02/01/2021 at 15:48 Approved by: Danial Bhandari M.D. on 02/01/2021 at 15:48
== END ==
PROVIDERS: PCP Family Medicine; Referring Provider Family Medicine; Visit Provider Family Medicine
DX: G89.29 Other chronic pain (principal); M25.552 Pain in left hip
CPT/HCPCS: 73502

== ENCOUNTER → 2021-03-31 08:32 | Outpatient (CLI) | payer MEDICARE, OTHER, SELFPAY ==
[2021-03-31 10:24] LABS: Add Manual Diff / Slide Review NO; Basophils Absolute Auto 100 /uL (0-100); Basophils Percent Auto 1.2 % (0-2); Eosinophils Absolute Auto 200 /uL (0-450); Eosinophils Percent Auto 2.8 % (2-4); Hematocrit 36.4 % (36-46); Hemoglobin 12.1 g/dL (12.0-16.0); Lymphocytes Absolute Auto 2600 /uL (1100-4500); Lymphocytes Percent Auto 42.1 % (25-40); Mean Corpuscular HGB Conc 33.1 % (30-36); Mean Corpuscular Hemoglobin 32.3 PG (26-34); Mean Corpuscular Volume 97.5 fL (80-100); Monocytes Absolute Auto 500 /uL (0-900); Monocytes Percent Auto 7.8 % (3-14); Neutrophils Absolute Auto 2800 /uL (1500-7000); Neutrophils Percent Auto 46.1 % (50-75); Platelet Count 405 X10^3/uL (150-400); Red Blood Cell Count 3.73 X10^6/uL (4.0-5.2); White Blood Cell Count 6.1 X10^3/uL (4.5-11.0)
[2021-03-31 10:33] LABS: Hemoglobin A1C% w Est Avg Glu 5.5 % (4.0-6.0)
[2021-03-31 11:27] LABS: Alanine Aminotransferase 10 IU/L (<35); Albumin 3.3 g/dL (3.5-5.0); Albumin Globulin Ratio 1.1 (1.0-2.8); Alkaline Phosphatase 84 U/L (38-126); Aspartate Aminotransferase 18 IU/L (14-36); BUN Creatinine Ratio 28.3 (6-22); Bilirubin Total 0.2 mg/dL (0.2-1.3); Blood Urea Nitrogen 15 mg/dL (7-17); Carbon Dioxide 25 mmol/L (22-32); Chloride 109 mmol/L (98-107); Cholesterol 179 mg/dL (140-199); Estimated Glomerular Filt Rate > 60.0 mL/min (>60); Globulin 3.1 g/dL (1.7-4.1); Glucose 105 mg/dL (80-110); HDL Cholesterol 75 mg/dL (40-60); HEMOLYSIS < 15 (0-50); LDL Cholesterol Calculated 67 mg/dL (<100); Potassium 4.4 mmol/L (3.4-5.1); Sodium 140 mmol/L (137-145); Total Protein 6.4 g/dL (6.3-8.2); Triglycerides 186 mg/dL (35-150)
== END ==
PROVIDERS: PCP Family Medicine; Referring Provider Family Medicine; Visit Provider Family Medicine
DX: E78.2 Mixed hyperlipidemia (principal); R73.09 Other abnormal glucose; R73.9 Hyperglycemia, unspecified
CPT/HCPCS: 36415; 80053; 80061; 83036; 85025

== ENCOUNTER → 2021-05-03 11:19 | Outpatient (CLI) | payer MEDICARE, OTHER, SELFPAY ==
--- NOTE | 2021-05-03 11:20 | DI.RAD.S_ITS ---
PROCEDURE: XR DEXA AXIAL SKELETON INDICATIONS: SCREENING COMPARISON: [facility], [place], DEXA AXIAL SKELETON, 11/16/2016, 10:56. FINDINGS: This blank DEXA report has been sent in error by the PACS system. The correct and complete report will be forthcoming in 1-2 days. Thank you for your patience and understanding. Dictated by: Arlen Willson MD, PhD on 05/03/2021 at 16:28 Approved by: Arlen Willson MD, PhD on 05/03/2021 at 16:28
== END ==
PROVIDERS: PCP Family Medicine; Referring Provider Family Medicine; Visit Provider Family Medicine
DX: Z13.820 Encounter for screening for osteoporosis; M85.852 Other specified disorders of bone density and structure, left thigh; Z78.0 Asymptomatic menopausal state; Z90.722 Acquired absence of ovaries, bilateral; Z87.891 Personal history of nicotine dependence
CPT/HCPCS: 77080

== ENCOUNTER → 2021-05-26 13:07 | Outpatient (CLI) | payer MEDICARE, OTHER, SELFPAY | PROVIDERS: PCP Family Medicine; Visit Provider Nurse Practitioner | DX: R30.0 Dysuria (principal); R35.0 Frequency of micturition | CPT/HCPCS: 87077; 87086; 87186 ==

== ENCOUNTER → 2022-03-16 13:31 | Outpatient (CLI) | payer MEDICARE, OTHER, SELFPAY ==
[2022-03-16 14:12] LABS: Add Manual Diff / Slide Review NO; Basophils Absolute Auto 100 /uL (0-100); Eosinophils Absolute Auto 200 /uL (0-450); Eosinophils Percent Auto 4.8 % (2-4); Hematocrit 37.6 % (36-46); Hemoglobin 12.6 g/dL (12.0-16.0); Lymphocytes Absolute Auto 2200 /uL (1100-4500); Lymphocytes Percent Auto 42.7 % (25-40); Mean Corpuscular HGB Conc 33.5 % (30-36); Mean Corpuscular Hemoglobin 31.2 PG (26-34); Monocytes Absolute Auto 400 /uL (0-900); Monocytes Percent Auto 7.7 % (3-14); Neutrophils Absolute Auto 2200 /uL (1500-7000); Neutrophils Percent Auto 43.8 % (50-75); Platelet Count 309 X10^3/uL (150-400); Red Blood Cell Count 4.05 X10^6/uL (4.0-5.2); Red Cell Distribution Width 12.9 % (11.6-14.8); White Blood Cell Count 5.1 X10^3/uL (4.5-11.0)
[2022-03-16 15:20] LABS: Alanine Aminotransferase 14 IU/L (<35); Albumin Globulin Ratio 1.1 (1.0-2.8); Alkaline Phosphatase 68 U/L (38-126); Aspartate Aminotransferase 21 IU/L (14-36); BUN Creatinine Ratio 21.6 (6-22); Bilirubin Total 0.4 mg/dL (0.2-1.3); Blood Urea Nitrogen 16 mg/dL (7-17); Carbon Dioxide 21 mmol/L (22-32); Chloride 107 mmol/L (98-107); Cholesterol 279 mg/dL (140-199); Estimated Glomerular Filt Rate > 60 mL/min (>60); Globulin 3.7 g/dL (1.7-4.1); Glucose 108 mg/dL (80-110); HDL Cholesterol 74 mg/dL (40-60); HEMOLYSIS < 15 (0-50); LDL Cholesterol Calculated 155 mg/dL (<100); Potassium 4.1 mmol/L (3.4-5.1); Sodium 138 mmol/L (137-145); Total Protein 7.7 g/dL (6.3-8.2); Triglycerides 250 mg/dL (35-150)
[2022-03-16 15:35] LABS: Vitamin D 25 Hydroxy (D3) 22.7 ng/mL (30.0-100.0)
== END ==
PROVIDERS: PCP Family Medicine; Referring Provider Family Medicine; Visit Provider Family Medicine
DX: E78.2 Mixed hyperlipidemia (principal); E55.9 Vitamin D deficiency, unspecified
CPT/HCPCS: 36415; 80053; 80061; 82306; 85025

== ENCOUNTER 2022-06-13 06:50 | Day surgery (SDC) | payer MEDICARE, OTHER, SELFPAY ==
[2022-06-13 07:24] VITALS: BMI 23.9
[2022-06-13 07:29] VITALS: BP 150/75; PULSE 60; RESP 16; TEMP 36.2; O2SAT 100
[2022-06-13] MEDS: LACTATED RINGERS 1,000 ML 150 ML IV (07:38)
[2022-06-13 07:51] LABS: COVID19 -Nasal RAPID Negative (Negative)
--- NOTE | 2022-06-13 08:29 | PM.HP.1 ---
History of Present Illness History of Present Illness Date Patient Seen: 06/13/22 Time Patient Seen: 08:29 Chief complaint: SDC Narrative: The patient presents for colorectal screening. Previous colonoscopy 10 years ago normal. No personal or family history of colon cancer. On further history denies any recent gastrointestinal symptoms. No nausea, vomiting, abdominal pain, loss of appetite, unexplained weight loss, change in bowel habits, diarrhea, constipation, melena, hematochezia, or bright red blood per rectum. Patient History Medical History BPPV (benign paroxysmal positional vertigo) Cervical somatic dysfunction Chronic left hip pain Chronic neck pain Chronic, continuous use of opioids Cranial somatic dysfunction Dehydration Diarrhea Episodic lightheadedness FHx: breast cancer Greater trochanteric bursitis of right hip Hot flashes Iliotibial band syndrome affecting left lower leg Iliotibial band syndrome, right leg Lumbar region somatic dysfunction Numbness and tingling of foot Pelvic somatic dysfunction Right knee pain Sacral region somatic dysfunction Screen for colon cancer Screen for colon cancer Screening for breast cancer Screening for osteoporosis Segmental and somatic dysfunction of abdomen and other regions Segmental and somatic dysfunction of rib cage Somatic dysfunction of lower extremity Stiff neck Stress due to family tension Thoracic region somatic dysfunction Family & Social History Family History Mother Cancer Father Hypertension Social History: household members spouse Tobacco & Substance use: Smoking Status Former smoker alcohol intake current alcohol intake frequency a few times a week Substance Use Type does not use Meds Home Medications and Allergies Home Medications Medication Instructions Recorded Confirmed Type cholecalciferol (vitamin D3) 1,250 50,000 unit PO QWEEK #7 caps 04/16/19 06/13/22 Rx mcg (50,000 unit) capsule citalopram 40 mg tablet (Celexa) 60 mg PO QDAY #135 tabs 08/11/20 06/13/22 Rx alprazolam 0.25 mg tablet 0.25 mg PO BID PRN Anxiety 11/09/20 06/13/22 History omeprazole 20 mg capsule,delayed 20 mg PO QDAY PRN Abdominal 11/09/20 06/13/22 History release Discomfort atorvastatin 20 mg tablet See Rx Instructions .Route 09/09/21 06/13/22 Rx .COMPLEX #90 tabs zolpidem 10 mg tablet See Rx Instructions .Route 01/10/22 06/13/22 Rx .COMPLEX #30 tabs cyclobenzaprine 10 mg tablet 5 mg PO HS PRN Muscle Spasm #30 05/19/22 06/13/22 Rx tabs peg 3350-electrolytes 236 240 ml PO Q10M #4,000 mL 05/31/22 06/13/22 Rx gram-22.74 gram-6.74 gram-5.86 gram solution (Golytely) dextroamphetamine-amphetamine 20 See Rx Instructions .Route 06/06/22 06/13/22 Rx mg tablet .COMPLEX #75 tabs estradiol 1 mg tablet 1 mg PO DAILY 1 month #30 tabs 06/07/22 06/13/22 Rx hydrocodone 5 mg-acetaminophen 325 See Rx Instructions .Route 06/09/22 06/13/22 Rx mg tablet .COMPLEX #60 tabs Allergies Allergy/AdvReac Type Severity Reaction Status Date / Time amoxicillin [AMOXICILLIN] Allergy Severe RASH/HIVES Verified 06/13/22 07:20 codeine [CODEINE] Allergy Mild GASTROINTESTINAL Verified 06/13/22 07:20 ISSUES Exam Vital Signs (past 8 hours): - 06/13/22 07:29 Temperature 97.2 F L Pulse Rate 60 Respiratory Rate 16 Blood Pressure 150/75 H Pulse Oximetry 100 Oxygen Delivery Method Room Air Oxygen Delivery Method Room Air Narrative Exam Narrative: General adult woman alert oriented no acute distress Abdomen soft nontender nondistended Objective Labs Labs: Laboratory Results - last 24 hr 06/13/22 07:18 SARS-CoV-2 (PCR) Negative Assessment & Plan Assessment & Plan narrative: The patient requires colorectal screening and colonoscopy is recommended. Technical details were discussed. Risks, benefits, alternatives explained. Risks including but not limited to myocardial infarction, aspiration, bleeding, pain, missed lesion, incomplete examination, need for further radiographic studies, colonic perforation, and need for major abdominal surgery were discussed. All questions were answered to their satisfaction, and they are in agreement with this plan. Time Spent With Patient Critical Care time: I spent a total of [] minutes of critical care time on this patient's care today; this time is exclusive of procedural time.
--- NOTE | 2022-06-13 08:32 | PM.OP.COLON ---
Operative Date/Time/Diagnoses Date of procedure: 06/13/22 Time of procedure: 08:32 Pre-op diagnosis: Screening colonoscopy Post-op diagnosis: same Procedure & Clinicians Study performed: Colonoscopy Same procedure as scheduled: Yes Indications: Screening Surgeon: Maycol Alex Procedure Notes Procedure in detail: Medications: Conscious sedation using 6mg IV midazolam and 200mcg IV of fentanyl The history and physical was performed/updated and the patient is ASA class is 2. The procedure was discussed in detail with the patient. Potential risks complications including infection, bleeding, missed diagnosis, perforation, need for surgery, and were explained. Their questions were answered and informed consent was obtained. Patient was brought to the procedure room and placed standard monitoring equipment. The patient's vital signs were monitored continuously throughout the entire procedure. Prior to starting time-out was performed. The patient was placed in the left lateral recumbent position. Procedural sedation was administered. Examination began with a thorough inspection of the perianal area there was no evidence of fissures, fistulae, external hemorrhoids or cutaneous malignancy. The colonoscopy scope was then placed into the anal canal and was advanced to the cecum, which was identified by the ileocecal valve, the appendiceal orifice and the confluence of the taenia. The scope was then slowly withdrawn examining colon thoroughly in all directions, irrigating it of any residual stool. FINDINGS 1.No masses or polyps 2. Diverticulosis of sigmoid colon mild 3. Internal hemorrhoids The patient tolerated the procedure well. They will be discharged once criteria are met. The prep was of good/excellent quality. The withdrawl time was 6 minutes. The sedation time was 20 minutes. Specimen(s): none sent Complications: none Impression: Normal colonoscopy Post-procedure Plan for aftercare: No need for further colonoscopy Disposition: same day surgery
[2022-06-13] MEDS: MIDAZOLAM 5 MG/5 ML VIAL IV (08:48)
[2022-06-13] MEDS: fentaNYL 100 MCG/2 ML INJ IV (08:56)
[2022-06-13 08:59] VITALS: BP 126/71; PULSE 72; RESP 22; TEMP 36.4; O2SAT 98
[2022-06-13 09:04] VITALS: BP 134/79; PULSE 75; RESP 18; O2SAT 98
[2022-06-13 09:09] VITALS: BP 151/76; PULSE 74; RESP 16; TEMP 36.2; O2SAT 98
[2022-06-13 09:23] VITALS: BP 144/67; PULSE 64; RESP 16; TEMP 36.4; O2SAT 97
--- NOTE | 2022-06-13 09:47 | SUR.PHASEII ---
Pt ready to go, left in stable condition and left with all belongings.
== END 2022-06-13 09:35 | disposition home or self-care (01) ==
PROVIDERS: PCP Family Medicine; Referring Provider Surgery; Visit Provider Surgery
PROC: 0DJD8ZZ Inspection of Lower Intestinal Tract, Via Natural or Artificial Opening Endoscopic (ICD-10-PCS; CPT 45378; principal; 2022-06-13 08:30)
DX: Z12.11 Encounter for screening for malignant neoplasm of colon (principal); Z20.822 Contact with and (suspected) exposure to COVID-19; K57.30 Diverticulosis of large intestine without perforation or abscess without bleeding; K64.8 Other hemorrhoids
CPT/HCPCS: G0121; 87635; 99152; C9803; J2250; J3010

== ENCOUNTER → 2022-09-20 10:25 | Outpatient (CLI) | payer MEDICARE, OTHER, SELFPAY ==
[2022-09-20 13:51] LABS: Cholesterol 264 mg/dL (140-199); HDL Cholesterol 58 mg/dL (40-60); LDL Cholesterol Calculated 173 mg/dL (<100); Triglycerides 166 mg/dL (35-150)
== END ==
PROVIDERS: PCP Family Medicine; Referring Provider Family Medicine; Visit Provider Family Medicine
DX: E78.2 Mixed hyperlipidemia (principal)
CPT/HCPCS: 36415; 80061

== ENCOUNTER → 2022-12-06 14:46 | Outpatient (CLI) | payer MEDICARE, OTHER, SELFPAY ==
--- NOTE | 2022-12-06 14:48 | DI.MG.S_ITS ---
BILATERAL DIGITAL SCREENING MAMMOGRAM 3D/2D WITH CAD: 12/06/2022 CLINICAL: Routine screening. Family history of breast cancer. Comparison is made to exams dated: 02/16/2018 mammogram, 11/16/2016 mammogram, and 10/29/2014 mammogram - [facility]. Both breasts are heterogeneously dense, which may obscure small masses (category c / 51-75% glandular tissue). Current study was also evaluated with a Computer Aided Detection (CAD) system. No significant masses, calcifications, or other findings are seen in either breast. There has been no significant interval change. IMPRESSION: NEGATIVE There is no mammographic evidence of malignancy. A 1 year screening mammogram is recommended. Based on the Tyrer Cuzick model (a risk assessment model) the patient's lifetime risk is 14.1% and her 10 year risk is 10.7%. According to the ACR, ACS, and NCCN guidelines, an annual breast MRI exam along with mammogram is recommended if the patient's lifetime risk is 20% or greater. This exam was interpreted at Station ID: [id number]. NOTE: For mammograms, a report in lay terms will be sent to the patient. Approximately 15% of breast malignancies will not be visualized mammographically. In the management of a palpable breast mass, a negative mammogram must not discourage biopsy of a clinically suspicious lesion. Electronically Signed By: Gabriel bangura/[email or web address]:12/06/2022 16:23:56 letter sent: Normal Exam ACR BI-RADS Category 1: Negative [id number]
== END ==
PROVIDERS: PCP Family Medicine; Referring Provider Family Medicine; Visit Provider Family Medicine
DX: Z12.31 Encounter for screening mammogram for malignant neoplasm of breast (principal); Z80.3 Family history of malignant neoplasm of breast
CPT/HCPCS: 77063; 77067

== ENCOUNTER → 2023-02-27 10:59 | Outpatient (CLI) | payer MEDICARE, OTHER, SELFPAY ==
[2023-02-27 11:43] LABS: Cholesterol 279 mg/dL (140-199); HDL Cholesterol 68 mg/dL (40-60); LDL Cholesterol Calculated 170 mg/dL (<100); Triglycerides 207 mg/dL (35-150)
== END ==
PROVIDERS: PCP Family Medicine; Referring Provider Family Medicine; Visit Provider Family Medicine
DX: E78.2 Mixed hyperlipidemia (principal)
CPT/HCPCS: 36415; 80061

== ENCOUNTER → 2023-07-25 10:33 | Outpatient (CLI) | payer MEDICARE, OTHER, SELFPAY ==
[2023-07-25 11:22] LABS: Add Manual Diff / Slide Review NO; Basophils Absolute Auto 100 /uL (0-100); Basophils Percent Auto 1.3 % (0-2); Eosinophils Absolute Auto 200 /uL (0-450); Eosinophils Percent Auto 5.2 % (2-4); Hematocrit 37.6 % (36-46); Hemoglobin 12.8 g/dL (12.0-16.0); Lymphocytes Absolute Auto 1900 /uL (1100-4500); Lymphocytes Percent Auto 43.8 % (25-40); Mean Corpuscular HGB Conc 33.9 % (30-36); Mean Corpuscular Volume 94.4 fL (80-100); Monocytes Absolute Auto 300 /uL (0-900); Monocytes Percent Auto 7.7 % (3-14); Neutrophils Absolute Auto 1900 /uL (1500-7000); Platelet Count 318 X10^3/uL (150-400); Red Blood Cell Count 3.98 X10^6/uL (4.0-5.2); Red Cell Distribution Width 13.2 % (11.6-14.8); White Blood Cell Count 4.4 X10^3/uL (4.5-11.0)
[2023-07-25 11:43] LABS: Alanine Aminotransferase 39 IU/L (<35); Albumin 4.4 g/dL (3.5-5.0); Albumin Globulin Ratio 1.2 (1.0-2.8); Alkaline Phosphatase 93 U/L (38-126); Aspartate Aminotransferase 31 IU/L (14-36); Bilirubin Total 0.7 mg/dL (0.2-1.3); Blood Urea Nitrogen 20 mg/dL (7-17); Calcium 9.8 mg/dL (8.4-10.2); Carbon Dioxide 24 mmol/L (22-32); Chloride 103 mmol/L (98-107); Cholesterol 263 mg/dL (140-199); Estimated Glomerular Filt Rate > 60 mL/min (>60); Globulin 3.7 g/dL (1.7-4.1); Glucose 106 mg/dL (80-110); HDL Cholesterol 59 mg/dL (40-60); HEMOLYSIS 31 (0-50); Hemoglobin A1C% w Est Avg Glu 5.4 % (4.0-6.0); LDL Cholesterol Calculated 169 mg/dL (<100); Potassium 4.1 mmol/L (3.4-5.1); Sodium 137 mmol/L (137-145); Total Protein 8.1 g/dL (6.3-8.2); Triglycerides 174 mg/dL (35-150)
== END ==
PROVIDERS: PCP Family Medicine; Referring Provider Family Medicine; Visit Provider Family Medicine
DX: E78.2 Mixed hyperlipidemia (principal); G62.9 Polyneuropathy, unspecified
CPT/HCPCS: 36415; 80053; 80061; 83036; 85025

== ENCOUNTER → 2023-11-08 11:26 | Outpatient (CLI) | payer MEDICARE, OTHER, SELFPAY | PROVIDERS: PCP Family Medicine; Referring Provider Family Medicine; Visit Provider Family Medicine | DX: I63.9 Cerebral infarction, unspecified (principal) | CPT/HCPCS: 93246 ==

== ENCOUNTER → 2024-12-09 09:21 | Outpatient (CLI) | payer OTHER, MEDICARE, SELFPAY ==
[2024-12-09 10:30] LABS: Add Manual Diff / Slide Review NO; Basophils Absolute Auto 0 /uL (0-100); Basophils Percent Auto 0.8 % (0-2); Eosinophils Absolute Auto 300 /uL (0-450); Eosinophils Percent Auto 4.9 % (2-4); Hematocrit 38.2 % (36-46); Hemoglobin 13.1 g/dL (12.0-16.0); Lymphocytes Absolute Auto 2700 /uL (1100-4500); Lymphocytes Percent Auto 44.5 % (25-40); Mean Corpuscular HGB Conc 34.2 % (30-36); Mean Corpuscular Hemoglobin 32.7 PG (26-34); Mean Corpuscular Volume 95.6 fL (80-100); Monocytes Absolute Auto 400 /uL (0-900); Monocytes Percent Auto 7.1 % (3-14); Neutrophils Absolute Auto 2600 /uL (1500-7000); Neutrophils Percent Auto 42.7 % (50-75); Platelet Count 344 X10^3/uL (150-400); White Blood Cell Count 6.1 X10^3/uL (4.5-11.0)
[2024-12-09 10:56] LABS: Alanine Aminotransferase 27 IU/L (<35); Albumin 4.4 g/dL (3.5-5.0); Albumin Globulin Ratio 1.3 (1.0-2.8); Alkaline Phosphatase 91 U/L (38-126); Aspartate Aminotransferase 31 IU/L (14-36); BUN Creatinine Ratio 20.4 (6-22); Bilirubin Total 0.9 mg/dL (0.2-1.3); Blood Urea Nitrogen 20 mg/dL (7-17); Calcium 9.4 mg/dL (8.4-10.2); Carbon Dioxide 27 mmol/L (22-32); Chloride 101 mmol/L (98-107); Cholesterol 216 mg/dL (140-199); Estimated Glomerular Filt Rate > 60 mL/min (>60); Globulin 3.3 g/dL (1.7-4.1); Glucose 92 mg/dL (80-110); HDL Cholesterol 78 mg/dL (40-60); HEMOLYSIS < 15 (0-50); LDL Cholesterol Calculated 113 mg/dL (<100); Potassium 4.3 mmol/L (3.4-5.1); Sodium 138 mmol/L (137-145); Total Protein 7.7 g/dL (6.3-8.2); Triglycerides 123 mg/dL (35-150)
[2024-12-09 11:06] LABS: Vitamin D 25 Hydroxy (D3) 28.8 ng/mL (30.0-100.0)
== END ==
PROVIDERS: PCP Family Medicine; Referring Provider Family Medicine; Visit Provider Family Medicine
DX: I10 Essential (primary) hypertension (principal); I63.9 Cerebral infarction, unspecified; I63.239 Cerebral infarction due to unspecified occlusion or stenosis of unspecified carotid artery; E78.2 Mixed hyperlipidemia; E55.9 Vitamin D deficiency, unspecified
CPT/HCPCS: 36415; 80053; 80061; 82306; 85025

== ENCOUNTER → 2025-06-22 09:58 | Outpatient (CLI) | payer MEDICARE, OTHER, SELFPAY ==
[2025-06-22 11:01] LABS: Add Manual Diff / Slide Review NO; Hematocrit 37.0 % (36-46); Hemoglobin 12.7 g/dL (12.0-16.0); Lymphocytes Absolute Auto 2300 /uL (1100-4500); Mean Corpuscular HGB Conc 34.3 % (30-36); Mean Corpuscular Hemoglobin 32.5 PG (26-34); Mean Corpuscular Volume 94.9 fL (80-100); Platelet Count 317 X10^3/uL (150-400)
[2025-06-22 12:01] LABS: Alanine Aminotransferase 21 IU/L (<35); Albumin 4.5 g/dL (3.5-5.0); Albumin Globulin Ratio 1.3 (1.0-2.8); Alkaline Phosphatase 78 U/L (38-126); Blood Urea Nitrogen 15 mg/dL (7-17); Calcium 10.0 mg/dL (8.4-10.2); Carbon Dioxide 27 mmol/L (22-32); Chloride 103 mmol/L (98-107); Cholesterol 206 mg/dL (140-199); Estimated Glomerular Filt Rate > 60 mL/min (>60); Globulin 3.5 g/dL (1.7-4.1); Glucose 114 mg/dL (70-99); HDL Cholesterol 69 mg/dL (40-60); HEMOLYSIS < 15 (0-50); Potassium 3.9 mmol/L (3.4-5.1); Sodium 140 mmol/L (137-145); Total Protein 8.0 g/dL (6.3-8.2); Triglycerides 162 mg/dL (35-150)
[2025-06-22 12:13] LABS: Vitamin D 25 Hydroxy (D3) 26.8 ng/mL (30.0-100.0)
== END ==
PROVIDERS: PCP Family Medicine; Referring Provider Family Medicine; Visit Provider Family Medicine
DX: I10 Essential (primary) hypertension (principal); E55.9 Vitamin D deficiency, unspecified; E78.2 Mixed hyperlipidemia
CPT/HCPCS: 36415; 80053; 80061; 82306; 85025